=== PATIENT | male | born 1975 | race Caucasian/White ===

== ENCOUNTER 2020-04-15 10:58 | Emergency (ER) | payer MEDICAID, OTHER ==
[~2020-04-15] VITALS: Ht 175.3 cm; Wt 97.5 kg
[2020-04-15 11:11] VITALS: BP 135/83
--- NOTE | 2020-04-15 11:19 | Emergency Room Report ---
History of Present Illness General Chief Complaint: Flu Like Symptoms Source: Patient Present Illness HPI Patient is a 44-year-old male who [facility] the ER from [facility] with flulike symptoms. Patient complains of night sweats and throat pain that started last night. He denies any documented fever. He denies any cough. He denies any difficulty swallowing, drooling or changes to his voice. He denies any rash. He denies any shortness of breath or chest pain. He states that nobody in his facility is sick. He believes that they sent him here to get tested for COVID-19. Allergies: Coded Allergies: No Known Allergies (Unverified , 04/15/20) COVID-19 Screening Contact w/high risk pt: No Recent Travel to affected area: No Experienced COVID-19 symptoms?: Yes COVID-19 symptoms experienced: Runny Nose, Flu-Like Symptoms COVID-19 Testing performed DIRECTOR OF PROMOTIONS: No Patient History Reviewed Nursing Documentation: PMH: Agreed; PSxH: Agreed Nursing Documentation-PMH History Of Psychiatric Problem: Yes - depression Review of Systems All Other Systems: negative except mentioned in HPI Physical Exam Vital Signs Date Time Temp Pulse Resp B/P (MAP) Pulse Ox O2 Delivery O2 Flow Rate FiO2 04/15/20 11:11 98.2 78 20 135/83 (100) 94 Room Air Sp02 EP Interpretation: reviewed, normal General Appearance: no apparent distress, alert, GCS 15, non-toxic Head: normocephalic, atraumatic Eyes: bilateral eye normal inspection, bilateral eye PERRL ENT: hearing grossly normal, normal pharynx, no angioedema, normal voice, other - No tonsillar swelling or exudate Neck: full range of motion, no meningismus, supple/symm/no masses Respiratory: chest non-tender, lungs clear, normal breath sounds, speaking full sentences Cardiovascular #1: regular rate, rhythm, no edema Gastrointestinal: normal bowel sounds, non tender, soft, non-distended, no guarding, no rebound Rectal: deferred Genitourinary: no CVA tenderness Musculoskeletal: normal range of motion Neurologic: director health III-XII nml as tested Psychiatric: no suicidal/homicidal ideation Skin: no rash Lymphatic: no adenopathy Medical Decision Making Diagnostic Impression: Primary Impression: Viral syndrome ER Course Patient's oxygen saturation mid 90s even when ambulating. No shortness of breath. Afebrile. Chest x-ray demonstrates no acute cardiopulmonary pathology. Patient presents to the emergency room with mild respiratory infection. I explained that this could be due to respiratory infection such as the cold, the flu or Coronavirus Disease. Most people with such infections can get better with appropriate home care and without the need to see a provider. People who are elderly, or have a weak immune system or other medical problems are at a higher risk of more serious illness or complications. I recommend that they carefully monitor their symptoms closely and seek medical care early if their symptoms get worse. I recommend rest, drinking plenty of fluids, taking [id number] cold and flu medications to reduce fever and pain. I noted that these medicines do not cure the illness and therefore do not stop them from spreading the germs. I recommend self quarantine for 14 days. Explained to the patient that we do not do routine Covid-19 testing for mild respiratory infections at [facility] in the Emergency Department. They may obtain it on an outpatient basis. I asked them to call their doctor before going to their office so they can prepare for their visit and note that the patient may have Covid-19. I recommend isolation until tests show that the patient does not have Covid-19 or they are told by the public health department or their primary care physician that they are no longer infectious. Chest X-Ray Diagnostic Results Chest X-Ray Diagnostic Results : Chest X-Ray Ordered: Yes # of Views/Limited/Complete: 1 View Indication: Other - viral syndrome EP Interpretation: Yes Interpretation: no consolidation, no effusion, no pneumothorax, no acute cardiopulmonary disease Impression: No acute disease Electronically Signed by: Tiarra Tavarez MD Last Vital Signs Date Time Temp Pulse Resp B/P (MAP) Pulse Ox O2 Delivery O2 Flow Rate FiO2 04/15/20 11:11 98.2 78 20 135/83 (100) 94 Room Air Disposition: HOME, SELF-CARE Condition: Stable Additional Instructions: The patient was provided with discharge instructions, notified to follow-up with a primary care doctor and or specialist in the next 24-48 hours, and to return to the ED if they have worsening of their symptoms. Please note that this report is being documented using Ditto technology. This can lead to erroneous entry secondary to incorrect interpretation by the dictating instrument. Tiarra Tavarez M.D. 30, 2020 11:19
--- NOTE | 2020-04-15 11:20 | NUR ---
ED Nurse Note: Pt walked in due to flu like symptoms of SOB, night sweats and sore throat x 1 day. Denies CP at this time. AAO x4 ambulatory and speaks in clear sentences.
--- NOTE | 2020-04-15 11:37 | NUR ---
ED Nurse Note: p 3 armament/ordnance ima technician at the bed side for CXR.
[2020-04-15 12:06] VITALS: BP 128/75
--- NOTE | 2020-04-15 12:06 | NUR ---
ER DISCHARGE NOTE: Patient is cleared to be discharged per ERMD, pt is aox4, on room air, with stable vital signs. pt was given dc instructions, pt was able to verbalize understanding, pt id band removed. pt is able to ambulate with steady gait. pt took all belongings.
--- NOTE | 2020-04-15 12:37 | Diagnostic Imaging Report ---
Indication: Chest pain Technique: One view of the chest Comparison: none Findings: There is atelectasis at the left lung base. Lungs and pleural spaces are otherwise clear. The heart size is normal Impression: Left basilar atelectasis. Otherwise negative
== END 2020-04-15 12:06 | disposition home or self-care (01) ==
LOC: EMR 12:00
DX: B34.9 Viral infection, unspecified (principal); F32.9 Major depressive disorder, single episode, unspecified
CPT/HCPCS: 71045; Z7502; 99283